=== PATIENT | female | born 1955 | race Caucasian/White ===

== ENCOUNTER → 2023-04-05 | Outpatient (CLI) | payer MEDICARE, BC ==
[~2023-04-05] MED LIST: OMEP20ER PO; PRAV20
[2023-04-05 14:50] LABS: Alanine Aminotransfer (ALT/SGP 45 U/L (12-78); Albumin, Blood 4.1 g/dL (3.4-5.0); Albumin/Globulin Ratio 1.2 (0.8-1.8); Alk Phos 72 U/L (50-136); Anion Gap 6 mmol/L (6-16); Aspartate Aminotrans (AST/SGOT 22 U/L (12-37); Bilirubin, Total 0.3 mg/dL (0.1-1.0); Blood Urea Nitrogen 24 mg/dL (8-24); Bun/Creatinine Ratio 25.4 (12.0-20.0); CHOL/HDL RATIO 4.4; CO2, Blood 26 mmol/L (21-32); Chloride, Blood 108 mmol/L (98-108); Cholesterol 238 mg/dL (50-200); Creatinine, Blood 0.95 mg/dL (0.40-1.00); Globulin, Blood 3.3 g/dL (2.2-4.0); Glomerular Filtration Rate 65 (60-); Glucose, Blood 104 mg/dL (70-99); HDL Cholesterol 54 mg/dL (>39); LDL/HDL RATIO 2.4; Low Density Lipoprotein Chol 129 mg/dL (0-110); Potassium, Blood 4.3 mmol/L (3.5-5.5); Sodium, Blood 140 mmol/L (136-145); Total Protein, Blood 7.4 g/dL (6.4-8.2); Triglycerides 273 mg/dL (30-160); Very Low Density Lipoprot Chol 54 mg/dL (6-32)
== END ==
LOC: LAB 13:50 → LAB SHORT 13:50
PROVIDERS: Physician Assistant
DX: E78.2 Mixed hyperlipidemia (principal); I10 Essential (primary) hypertension
CPT/HCPCS: 80053; 80061

== ENCOUNTER 2024-08-27 06:18 | Day surgery (SDC) | payer MEDICARE, BC ==
[~2024-08-27] VITALS: Ht 165.1 cm; Wt 110.6 kg
[~2024-08-27 06:18] MED LIST changes: +Apple Cider Vi300 MG; +BERBERINE500 MG; +MAGCIT300; +METO25ER PO; +MULVITA PO; +NERVIVE; +RED YEAST RICE55 MG
[2024-08-27] MEDS ORDERED: NS 500 ML IV SCH (06:35)
[2024-08-27 06:48] VITALS: BP 136/84
--- NOTE | 2024-08-27 06:54 | NUR ---
08/27/24 [id number] Namrata Aranda WITH RAIMUNDO MARTIENZ CRNA. SEE ANESTHESIA RECORDS.
[2024-08-27] MEDS ORDERED: propofoL 20 ML IV ONE (07:22)
[2024-08-27 07:46] VITALS: BP 139/73
[2024-08-27 07:55] VITALS: BP 150/106
--- NOTE | 2024-08-27 07:59 | NUR ---
Discharge instructions reviewed with patient. Patient verbalizes understanding. Copy given to patient to take home. Discharged via wheelchair to private car for ride home.
== END 2024-08-27 08:09 | disposition home or self-care (01) ==
LOC: ORSCMMR 06:18 → ORD 08:00 → ORSCMMR 08:00
PROVIDERS: Internal Medicine Gastroenterology
PROC: 0DB48ZX Excision of Esophagogastric Junction, Via Natural or Artificial Opening Endoscopic, Diagnostic (ICD-10-PCS; principal; 2024-08-27 08:00)
DX: K21.00 Gastro-esophageal reflux disease with esophagitis, without bleeding (principal); Z87.11 Personal history of peptic ulcer disease; I10 Essential (primary) hypertension; E66.01 Morbid (severe) obesity due to excess calories; Z68.41 Body mass index [BMI] 40.0-44.9, adult; Z79.899 Other long term (current) drug therapy
CPT/HCPCS: 88305; 88312; J2704; J7040